=== PATIENT | female | born 1975 | race Hispanic/Latino ===

== ENCOUNTER 2017-06-10 00:43 | Day surgery (SDC) | payer BC ==
[2017-06-10 01:11] VITALS: BMI 44.4
--- NOTE | 2017-06-10 01:33 | PDOC.EVN ---
Event Note - Event Note Event Note: L&D Triage note Patient of [facility] CC: irregfular CTX at 39 weeks HPI: 41 yo (all SVDs) here at 39 wks with irregular CTX. No LOF, NO VB, no PIH sxs. Good FM. No issues. Review of systems: Complete list done and positive per HPI Past medical: Asthma- controlled Past OB: SVDs Allergies: None Social History: negative x3 Physica;: 137/85, afebrile NAD Comfortable Abd s=d EFW approx 7# (limited by BMI) CX= 3/50/-2/BOWI (same exam as last check in office) Monitors: Moderate variability, few contractions Assessment: AMA, term, latent labor. Plan: 1. NST done 2. No evidence true labor 3. Offer pain meds 4. Recheck BP 5. Recheck in office tomorrow
[2017-06-10] MEDS ORDERED: Promethazine HCl 25 MG/ML VIAL IM/IV PRN (01:45)
--- NOTE | 2017-06-10 01:46 | PDOC.EVN ---
Event Note - Event Note Event Note: BP was 144/80 during this last contraction. No HX BP issues. May be pain related. However, we will obs in L&D with BP checks Q30 minutes for next 2 hours and recheck CX then. Pain meds for now. Patient seen at bedside). Plan d/ w patient and partner.
--- NOTE | 2017-06-10 03:44 | PDOC.EVN ---
Event Note - Event Note Event Note: CX unchanged after 2 hrs, BPs wnl after pain meds. NST now with stadol sedation effect (but accel on exam). OK for clinic follow up.
== END 2017-06-10 03:50 | disposition home or self-care (01) ==
LOC: L&D/OP 00:43
PROVIDERS: ATTEND Advanced Practice Midwife
DX: O47.1 False labor at or after 37 completed weeks of gestation (principal); O99.513 Diseases of the respiratory system complicating pregnancy, third trimester; J45.909 Unspecified asthma, uncomplicated; Z3A.39 39 weeks gestation of pregnancy
CPT/HCPCS: 96372; 99283; J0595; J2550

== ENCOUNTER 2017-06-10 09:31 | Inpatient (IN) | payer BC ==
[2017-06-10] MEDS ORDERED: Methylergonovine 0.2 MG/ML VIAL IM PRN ×2 (09:33→21:50)
[2017-06-10] MEDS ORDERED: Lidocaine 1% (PF) 30 ML VIAL SC PRN (09:33)
[2017-06-10] MEDS ORDERED: Promethazine HCl 25 MG/ML VIAL IM PRN ×2 (09:33→11:01)
[2017-06-10] MEDS ORDERED: Misoprostol 200 MCG TAB PR PRN (09:33)
[2017-06-10] MEDS ORDERED: Ibuprofen 800 MG TAB PO PRN (09:33)
[2017-06-10] MEDS ORDERED: Ondansetron HCl/PF 4 MG/2 ML Vial IVP PRN ×3 (09:33→21:50)
[2017-06-10] MEDS ORDERED: HYDROcodone/Acetaminophen 5/325 mg Tablet PO PRN ×4 (09:33→21:50)
[2017-06-10] MEDS ORDERED: LR 500 ML/Oxytocin 10 units 500 ML IV SCH (09:45)
--- NOTE | 2017-06-10 09:46 | PDOC.LDHP ---
Labor and Delivery H&P Chief complaint: contractions HPI: Pt started jennifer last night at midnight. The contractions she is having now are much stronger than they were, to the point that she wants to cry. She reports good movement. She has also been leaking some fluid and bloody mucus since yesterday morning. Current gestational age (weeks): 39 Dating criteria: last menstrual period (verified with 1st trimester US) Grav: 7 Para: 3 Current complications: other (Advanced Maternal Age) Abnormal US findings: No Past Medical History: abnormal pap - cryo Current medications: pre- vitamins Previous surgical history: cholecystectomy (1993) Allergies/Adverse Reactions: Allergies Allergy/AdvReac Type Severity Reaction Status Date / Time No Known Allergies Allergy Verified 06/10/17 01:12 - Physical Exam Vital signs reviewed and normal: yes Abnormal vital signs: BPs range from 128-144 / 75-95 General: breathing through contractions Heart: RRR Lungs: nonlabored breathing Abdomen: other (obese) FHT: category 1 - Vaginal Exam cm dilated: 5 Effacement: 90% Station: -2 - OB Labs Blood type: A RH: positive Antibody Screen: negative HIV: negative RPR: negative HEPSAg: negative 1 hour GCT: positive 3 hour GTT: negative GBS: positive Urine drug screen: not done - Assessment L&D Assessment: term patient in labor CTX Q 3-6 mins FHTs 140 baseline, moderate variability, + Accel, no decelerations. - Plan Plan: admit to L&D, labor augmentation if indicated, GBS antibiotic prophylaxis
[2017-06-10] MEDS ORDERED: Penicillin G Potassium 5 MILL.UNITS VIAL ONE (09:47)
[2017-06-10] MEDS: Dextrose 5%-Lactated Ringers 1,000 ML IV SCH (09:52)
[2017-06-10] MEDS ORDERED: Penicillin G Potassium 5 MILL.UNITS in Sodium Chloride 0.9% 100 ML IVPB SCH (10:00)
[2017-06-10] MEDS ORDERED: Fentanyl 4 mcg/Marc 0.1% Cadd 100 ML ONE (10:06)
[2017-06-10 10:20] LABS: Hemoglobin 12.9 g/dL (12.0-16.0); Mean Corpuscular HGB CONC 32.5 g/dL (32.0-36.0); Mean Corpuscular Hemoglobin 27.1 pg (27.0-31.0); Mean Corpuscular Volume 83.3 fl (81.0-99.0); Mean Platelet Volume 11.3 fL (7.4-10.4); Platelet Count 168 thou/uL (130-400); RBC Distribution Width 16.5 % (11.5-14.5); Red Blood Cell (RBC) Count 4.75 mill/uL (4.20-5.40); White Blood Cell (WBC) Count 14.2 thou/uL (4.8-10.8)
[2017-06-10 10:56] LABS: HBSAg Index 0.19 S/CO (0-0.99); Hep B Surf Ag Non-Reactive S/CO (NonReactive); Syphilis Antibody Nonreactive (Nonreactive); Syphilis Antibody Index 0.04 S/CO (<1.00 Non-Reactive)
[2017-06-10] MEDS ORDERED: Eucerin (Mineral Oil/Petrolatum,White) 30 gm Jar TOP PRN (11:01)
[2017-06-10] MEDS ORDERED: Acetaminophen 325 MG TAB PO PRN (11:01)
[2017-06-10] MEDS ORDERED: diphenhydrAMINE 50 MG/ML VIAL IVP PRN (11:01)
[2017-06-10] MEDS ORDERED: ePHEDrine/0.9% NaCl/PF SYRINGE 50 mg/10 ml SLOW IVP PRN (11:01)
[2017-06-10] MEDS ORDERED: Lactated Ringer's 500 ML IV PRN (11:01)
[2017-06-10] MEDS ORDERED: Naloxone HCl 0.4 mg/ml Vial IVP PRN ×2 (11:01)
[2017-06-10] MEDS: Lactated Ringer's 1,000 ML IV SCH ×2 (11:05→16:41)
[2017-06-10] MEDS ORDERED: Bupivacaine 0.25% HCL 30 ML VIAL ONE (11:11)
[2017-06-10] MEDS ORDERED: Communication Order-Pharmacy FS SCH (11:15)
[2017-06-10] MEDS ORDERED: Fentanyl 4mcg/Marcaine 0.1% Cassette 100 ML EPIDURAL SCH (11:15)
[2017-06-10] MEDS: Penicillin G 2.5 MILL.units 2.5 MILL.UNITS in Premix Bag 1 BAG IVPB SCH (13:45)
[2017-06-10 17:32] VITALS: BMI 44.4
[2017-06-10] MEDS: LR / Pitocin 40 units/1000 ml 1,000 ML IV PRN ×2 (18:09→19:29)
[2017-06-10] MEDS ORDERED: Gentamicin 80 MG/2 ML VIAL IVPB SCH (18:45)
--- NOTE | 2017-06-10 18:47 | PDOC.OPDEL ---
OB Operative/Delivery Note Delivery Dr/Surgeon: Geneva Mancuso CNM Pre-Delivery Diagnosis: active labor, other (chorioamnionitis) Procedure/Post Delivery Dx: other (chorioamnionitis) Weeks gestation: 39 Anesthesia: epidural - Findings A Sex: female Weight: 9 lb 1 oz - 1 min: 8 - 5 min: 9 - Additional Findings/Plan Placenta delivered: spontaneous Repaired Obstetrical Laceration: 1st degree (repaired.) Estimated blood loss: 400 Post delivery plan: routine recovery
[2017-06-10] MEDS ORDERED: Gentamicin Sulfate 360 MG in Sodium Chloride 0.9% 100 ML IVPB SCH (19:00)
[2017-06-10] MEDS ORDERED: HYDROcodone/Acetaminophen 5/325 mg Tablet PO SCH (21:00)
[2017-06-10] MEDS ORDERED: Milk Of Magnesia 30 ML UDCUP PO PRN (21:50)
[2017-06-10] MEDS ORDERED: Benzocaine/Menthol 20-0.5% 60 ML CAN TOP PRN (21:50)
[2017-06-10] MEDS ORDERED: Bisacodyl 10 MG SUPP PR PRN (21:50)
[2017-06-10] MEDS ORDERED: Adacel (T-DAP) 0.5 ML VIAL IM ONE (21:50)
[2017-06-10] MEDS ORDERED: Misoprostol 200 MCG TAB VAG SCH (21:50)
[2017-06-10] MEDS ORDERED: LR / Pitocin 40 units/1000 ml 1,000 ML IV SCH (21:50)
[2017-06-10] MEDS ORDERED: Docusate Calcium (SURFAK) 240 MG CAP PO SCH (22:00)
[2017-06-10] MEDS: Ampicillin 2 GM, Syringe 5.2 ML in Sterile Water 14.8 ML SLOW IVP SCH (22:07)
[2017-06-10] MEDS: Ibuprofen 800 MG TAB PO SCH (22:14)
[2017-06-10] MEDS: Docusate Calcium (SURFAK) 240 MG CAP PO SCH (22:14)
[2017-06-10] MEDS ORDERED: Ampicillin 2 GM in Sodium Chloride 0.9% 100 ML IVPB SCH (23:59)
[2017-06-11] MEDS ORDERED: Lanolin Ointment 7 GM TUBE TOP PRN (02:56)
[2017-06-11] MEDS: Ampicillin 2 GM, Syringe 5.2 ML in Sterile Water 14.8 ML SLOW IVP SCH ×3 (03:54→16:09)
[2017-06-11] MEDS: Ibuprofen 800 MG TAB PO SCH ×3 (06:01→21:56)
[2017-06-11 06:36] LABS: Hemoglobin 10.4 g/dL (12.0-16.0); Mean Corpuscular HGB CONC 32.9 g/dL (32.0-36.0); Mean Corpuscular Hemoglobin 27.8 pg (27.0-31.0); Mean Corpuscular Volume 84.6 fl (81.0-99.0); Mean Platelet Volume 11.3 fL (7.4-10.4); Platelet Count 151 thou/uL (130-400); RBC Distribution Width 16.9 % (11.5-14.5); Red Blood Cell (RBC) Count 3.73 mill/uL (4.20-5.40); White Blood Cell (WBC) Count 15.8 thou/uL (4.8-10.8)
[2017-06-11] MEDS: Penicillin G 2.5 MILL.units 2.5 MILL.UNITS in Premix Bag 1 BAG IVPB SCH ×4 (07:45→17:06)
[2017-06-11] MEDS: Ferrous Sulfate 325 MG TAB PO SCH ×2 (07:46→15:35)
--- NOTE | 2017-06-11 10:13 | PDOC.PP ---
Post Progress Note Post Day #: 1 Subjective: doing well. nose is stuffy and she cannot clear it out PO intake tolerated: yes Flatus: yes Ambulation: yes Vital Signs (12 hours) Temp Pulse Resp BP 06/11/17 06:00 98.4 F 95 18 121/65 06/11/17 04:00 98.2 F 98 18 06/11/17 00:00 98.2 F 98 18 122/69 Weight Weight 235 lb - Physical Examination General: NAD Cardiovascular: RRR Respiratory: clear to auscultation bilaterally Abdominal: + bowel sounds, lochia (minimal) Fundus firm & at: U Extremities: negative homans (B) Skin: no rash Perineum: Clean, intact Neurological: no gross focal deficits Psychiatric: A&Ox3 Result Diagrams: 06/11/17 06:13 Additional Labs: Post Labs Hep Bs Antigen Non-Reactive S/CO (NonReactive) 06/10/17 09:52 - Assessment/Plan A: G7 now P4 s/p and repaired 1st degree with NML exam. Allergic sinusitis - neg flu swab P: [place] nasal spray H2 antihistamine PO QD AM and Benadryl 25mg PO Q HS. Continue ABX until midnight. Watch patient for s/s of infection over next 36 hours and discharge if NML vitals signs and no clinical signs of infection
[2017-06-11] MEDS ORDERED: Loratadine 10 MG TAB PO PRN (10:14)
[2017-06-11] MEDS ORDERED: Sodium Chloride 0.9% 10 ML ONE ×2 (10:20→16:07)
[2017-06-11] MEDS: Prenatal Vitamin 1 TAB PO SCH (10:22)
[2017-06-11] MEDS: Docusate Calcium (SURFAK) 240 MG CAP PO SCH ×2 (10:22→20:28)
[2017-06-11] MEDS: Dextrose 5%-Lactated Ringers 1,000 ML IV SCH (12:54)
[2017-06-12] MEDS: Ibuprofen 800 MG TAB PO SCH ×2 (04:29→13:13)
[2017-06-12] MEDS: Ferrous Sulfate 325 MG TAB PO SCH (09:16)
[2017-06-12] MEDS: Docusate Calcium (SURFAK) 240 MG CAP PO SCH (09:38)
[2017-06-12] MEDS: Prenatal Vitamin 1 TAB PO SCH (09:38)
[2017-06-12 11:49] VITALS: BP 115/66; TEMP 98.1
[2017-06-12] MEDS ORDERED: diphenhydrAMINE 25 MG CAP PO SCH (21:00)
== END 2017-06-12 14:17 | disposition home or self-care (01) | DRG 775 ==
LOC: L&D/OP 09:31 → L&D 09:45 → 3SW 21:16
PROVIDERS: ADMIT Student in an Organized Health Care Education/Training Program; ATTEND Student in an Organized Health Care Education/Training Program
PROC: 10E0XZZ Delivery of Products of Conception, External Approach (ICD-10-PCS; principal; 2017-06-10)
PROC: 0HQ9XZZ Repair Perineum Skin, External Approach (ICD-10-PCS; 2017-06-10)
DX: O99.824 Streptococcus B carrier state complicating childbirth (principal); O41.1230 Chorioamnionitis, third trimester, not applicable or unspecified; Z68.41 Body mass index [BMI] 40.0-44.9, adult; Z3A.39 39 weeks gestation of pregnancy; Z37.0 Single live birth; O99.214 Obesity complicating childbirth; E66.9 Obesity, unspecified; O70.0 First degree perineal laceration during delivery; J30.9 Allergic rhinitis, unspecified; J45.909 Unspecified asthma, uncomplicated; O99.52 Diseases of the respiratory system complicating childbirth
CPT/HCPCS: 36415; 51702; 85027; 86780; 87340; 87804; 88307; 96372; 99283; 99285; A4216; J0290; J0595; J1580; J2001; J2540; J2550; J7050; S0020